=== PATIENT | female | born 2005 | race Caucasian/White ===

== ENCOUNTER 2024-05-11 05:05 | Emergency (ER) | payer BC ==
[2024-05-11] MEDS ORDERED: Lidocaine 2% Viscous 10 mL, Alum & Magn 30 mL SSW SCH (05:30)
[2024-05-11] MEDS ORDERED: Lorazepam 2 MG/ML VIAL ONE (06:15)
[2024-05-11] MEDS ORDERED: Famotidine/PF 20 mg/2ml Vial ONE (06:16)
[2024-05-11 06:40] LABS: #Basophils 0.02 10x3/uL (0.0-0.2); #Eosinphils 0.07 10x3/uL (0.0-0.5); #Monocytes 0.44 10x3/uL (0.0-1.1); #Neutrophils 3.38 10x3/uL (1.5-8.4); %Basophils 0.3 % (0.0-2.0); %Eosinophils 1.2 % (0.0-6.0); %Lymphocytes 35.4 % (18.0-47.0); %Monocytes 7.2 % (0.0-10.0); %Neutrophils 55.6 % (40.0-75.0); Hematocrit 36.3 % (34.9-44.5); Hemoglobin 12.4 g/dL (12.0-15.5); Mean Corpuscular HGB CONC 34.2 g/dL (32.0-36.0); Mean Corpuscular Hemoglobin 28.4 pg (27.0-33.0); Mean Corpuscular Volume 83.3 fL (81.6-98.3); Mean Platelet Volume 10.2 fL (7.4-10.4); Platelet Count 309 10x3/uL (150-450); RBC Distribution Width 13.2 % (11.5-14.5); Red Blood Cell (RBC) Count 4.36 10x6/uL (3.90-5.03); White Blood Cell (WBC) Count 6.1 10x3/uL (3.5-10.5)
[2024-05-11 06:48] LABS: BHCG - Serum Negative (NEGATIVE); Pregs Control Background? CLEAR/WHITE (CLR/WHITE); Pregs Control Bar Appear? YES (CONTROL BAR)
[2024-05-11 06:59] LABS: ALT (SGPT) 10 U/L (8-55); AST (SGOT) 14 U/L (5-34); Albumin 3.9 g/dL (3.5-5.0); Alkaline Phosphatase 49 U/L (40-110); Anion Gap 16 mmol/L (10-20); BUN (Urea Nitrogen) 11 mg/dL (7.0-18.7); Bilirubin, Total 0.4 mg/dL (0.2-1.2); Calc. Creatinine Clearance 0 mL/min (70-130); Calcium 9.3 mg/dL (7.8-10.44); Carbon Dioxide 19 mmol/L (22-29); Chloride 108 mmol/L (98-107); Estimated GFR 106; Glucose 98 mg/dL (70-105); Lipase 13 U/L (8-78); Potassium 3.6 mmol/L (3.5-5.1); Protein, Total 6.9 g/dL (6.0-8.3); Sodium 139 mmol/L (136-145)
[2024-05-11] MEDS ORDERED: Ketorolac Tromethamine 30 MG (1 mL) VIAL ONE (07:40)
== END 2024-05-11 08:30 | disposition home or self-care (01) ==
LOC: CSHERS 05:05
DX: K29.70 Gastritis, unspecified, without bleeding (principal)
CPT/HCPCS: 71045; 80053; 83690; 84703; 85025; 93005; 96374; 96375; 96376; J1885; J2060; S0028